=== PATIENT | female | born 1955 | race Caucasian/White ===

== ENCOUNTER 2021-04-25 10:38 | Emergency (ER) | payer OTHER, SELFPAY ==
--- NOTE | ~2021-04-25 | CT_ITS ---
EXAMINATION: CT facial & cervical spine wo DATE: 04/25/2021 11:52 INDICATION: Head injury, left facial and neck swelling TECHNIQUE: Computed tomography (CT) of the maxillofacial region and cervical spine was performed with out intravenous contrast. The dose-length product (DLP) was 475.69 mGy-cm. Automated exposure control and iterative reconstruction technique were employed. COMPARISON: None FINDINGS: MAXILLOFACIAL CT: No facial bone fracture is identified. There is mild mucosal thickening of the paranasal sinuses. The re are surgical changes of the maxillary sinuses. CERVICAL SPINE CT: There is no fracture. There is 1 mm of anterolisthesis of C2 on C3, C3 on C4, and C4 on C5. The verte bral body heights are maintained. There is moderate to severe loss of intervertebral disc space heigh t at C5-6 and C6-7. There is moderate to severe multilevel facet and uncovertebral joint osteoarthrit is. The odontoid is intact. The prevertebral soft tissues are normal. IMPRESSION: 1. No facial fracture identified. 2. Severe cervical spondylosis without acute findings. Reviewed, dictated and finalized at location A. OLEUM LABORATORY TECHNICIAN
--- NOTE | ~2021-04-25 | CT_ITS ---
EXAMINATION: CT brain wo con INDICATION: Head injury COMPARISON: None TECHNIQUE: Standard unenhanced head CT. The dose-length product (DLP) was 605.33 mGy-cm. The mA was a djusted according to patient size. Iterative reconstruction technique was employed. FINDINGS: There is no acute intraparenchymal hemorrhage. No evidence of mass lesion. No evidence of a cute infarction. There is mild periventricular and subcortical hypodensity probably related to small vessel ischemic disease. There is mild prominence of the sulci and ventricles related to cerebral atr ophy. Intracranial calcified cerebral atherosclerosis is noted. There are no extra-axial collections. There is no mass effect or midline shift. The orbits and soft tissues are unremarkable. There is mil d mucosal thickening of the paranasal sinuses. Surgical changes are noted in the maxillary sinuses. IMPRESSION: 1. No acute intracranial abnormality. 2. Age related findings. Reviewed, dictated and finalized at location A. ULER
[2021-04-25 10:42] VITALS: BP 160/95; PULSE 83; RESP 16; TEMP 36.2; O2SAT 97
--- NOTE | 2021-04-25 11:46 | ED.FALL ---
HPI - Fall General Chief Complaint: Fall Stated Complaint: fall Time Seen by Provider: 04/25/21 11:19 Source: patient Mode of arrival: ambulatory Limitations: no limitations History of Present Illness HPI Narrative: This is a 66-year-old female that presents to the emergency department after a fall 2 days ago. Reports she tripped in her kitchen and fell and hit her head and neck on the cabinets. Reports since she has had headache and neck pain. She is not on any blood thinners. Denies loss of consciousness, vision changes, vomiting, numbness, or weakness. Related Data Allergies Allergy/AdvReac Type Severity Reaction Status Date / Time No Known Allergies Allergy Verified 04/25/21 12:02 Review of Systems Review of Systems: CONSTITUTIONAL: Denies fever EYES: Denies visual changes GASTROINTESTINAL: Denies vomiting MUSCULOSKELETAL: Reports joint pain, and myalgia. NEUROLOGIC: Reports headache. Denies numbness, or weakness. All systems reviewed & are unremarkable except as noted in HPI and below PMFSH Past Medical History Medical History (Updated 04/25/21 @ 12:40 by Arlette Montemayor PA-C) History of hypertension History of psoriatic arthritis Social History Social History (Updated 04/25/21 @ 11:48 by Arlette Montemayor PA-C) Smoking status: Never smoker Exam Narrative: GENERAL: Well-appearing, well-nourished, and in no acute distress. HEAD: Normocephalic. Bruising noted to the left ear and the left side of the neck EYES: PERRLA and EOMI. ENT: Nares clear, no rhinorrhea or epistaxis. Mucous membranes moist. Oropharynx without tonsillar hypertrophy exudate or other lesions. Bilateral TMs pearly elaine non-bulging NECK: Supple. No adenopathy or masses. Tender to palpation of midline cervical spine CHEST: Clear to auscultation. No respiratory distress. No wheezes rales or rhonchi HEART: Regular rate and rhythm. No murmur heard. Normal peripheral pulses. BACK: Nontender to palpation of midline thoracic or lumbar spine EXTREMITIES: Normal range of motion. No edema. SKIN: Warm, dry, no rash. NEURO: No focal deficits. Alert and oriented x3. Cranial nerves II through XII grossly intact PSYCH: Normal mood and affect Course Vital Signs Vital signs: Vital Signs Temperature 97.2 F L 04/25/21 10:42 Pulse Rate 83 04/25/21 10:42 Respiratory Rate 16 04/25/21 10:42 Blood Pressure 160/95 H 04/25/21 10:42 Pulse Oximetry 97 04/25/21 10:42 Temperature 97.2 F L 04/25/21 10:42 Pulse Rate 83 04/25/21 10:42 Respiratory Rate 16 04/25/21 10:42 Blood Pressure 160/95 H 04/25/21 10:42 Pulse Oximetry 97 04/25/21 10:42 MDM - Fall MDM Narrative Medical decision making narrative: Patient presents to the emergency department after head injury 2 days ago. Reporting headache, neck pain, and facial injury. Patient is neurologically intact. Her vitals are stable. CT scan of the brain is without acute findings. CT scan cervical spine and facial bones also without acute findings. Patient was updated on case findings. She was instructed on care of concussion. She is to follow-up with her primary care doctor. She was given warnings to return to the ER Imaging Data Radiologist's impression: ITS Impressions Head CT 04/25/21 11:52 IMPRESSION: 1. No acute intracranial abnormality. 2. Age related findings. Head/Cervical Spine/Facial Bones CT 04/25/21 11:57 IMPRESSION: 1. No facial fracture identified. 2. Severe cervical spondylosis without acute findings. Critical Care Time Critical Care Time Critical Care Time: No Discharge Plan Discharge Clinical Impression: Head injury Qualifiers: Encounter type: initial encounter Qualified Code(s): S09.90XA - Unspecified injury of head, initial encounter Patient Disposition: Home, Self-Care Condition: Stable Instructions: Head Injury (ED) Additional Instructions: Return to the emergency department if you experienc
[2021-04-25] MEDS: ACETAMINOPHEN 500 MG TABLET 1000 MG PO (12:00)
== END 2021-04-25 12:45 | disposition home or self-care (01) ==
PROVIDERS: Emergency Provider Emergency Medicine
DX: S09.90XA Unspecified injury of head, initial encounter (principal); L40.50 Arthropathic psoriasis, unspecified; I10 Essential (primary) hypertension; M47.812 Spondylosis without myelopathy or radiculopathy, cervical region; W01.198A Fall on same level from slipping, tripping and stumbling with subsequent striking against other object, initial encounter
CPT/HCPCS: 70450; 70486; 72125; 99284; A9270

== ENCOUNTER 2021-11-13 09:01 | Emergency (ER) | payer OTHER, SELFPAY ==
[2021-11-13] VITALS (14 sets, daily range): BP systolic 137–180; BP diastolic 76–99; PULSE 89–105; RESP 15–28; TEMP 36.6; O2SAT 95–100
--- NOTE | ~2021-11-13 | XR_ITS ---
EXAMINATION: XR chest 2V 11/13/2021 09:50 INDICATION: Hypertension. Generalized weakness. PROCEDURE: 2 view chest COMPARISON: No prior studies for comparison. FINDINGS: The lungs are clear. The cardiomediastinal silhouette is within normal limits. There are no pleural effusions. There is no pneumothorax suspected. IMPRESSION: 1: NO ACUTE CARDIOPULMONARY DISEASE. Reviewed, dictated and finalized at location A.
--- NOTE | 2021-11-13 09:12 | ECG_ITS ---
Measurements Intervals [place] Rate: 85 P: 42 [place]: 169 QRS: -17 QRSD: 92 T: 10 QT: 361 QTc: 432 Interpretive Statements SINUS RHYTHM LOW QRS VOLTAGE IN PRECORDIAL LEADS [QRS DEFLECTION < 1.0 mV IN CHEST LEADS] POSSIBLE RIGHT VENTRICULAR CONDUCTION DELAY [RSR (QR) IN V1/V2] BORDERLINE ECG NO PREVIOUS ECG AVAILABLE FOR COMPARISON Electronically Signed On 11-13-2021 14:39:54 CDT by Willis Brown M.D.
--- NOTE | 2021-11-13 09:14 | ED.RECABL ---
HPI - Recheck/Abnormal Lab/Rx General Chief Complaint: Recheck/Abnormal Lab/Rx Stated Complaint: High BP, Feeling Sick All Week Time Seen by Provider: 11/13/21 09:12 Source: patient Mode of arrival: ambulatory Limitations: no limitations History of Present Illness HPI narrative: This is a 66 year old female that presents to the ER for elevated blood pressure. Reports she has been feeling funny all week. Reports a discomfort in her chest, that feels like nausea. This is worse in the morning and gets better throughout the day. She took her blood pressure today and it was elevated to the 200s/100s which prompted her to be seen today. She has been taking her blood pressure medications daily. She took them this morning. Reports she does follow with a wood model builder and had a stress test last year that was without concerning findings. Denies shortness of breath, abdominal pain, or lower extremity edema. Related Data Home Medications Medication Instructions Recorded Confirmed azelastine 137 mcg (0.1 %) nasal spray intranasal 11/13/21 spray aerosol duloxetine 30 mg capsule,delayed cap PO 11/13/21 release fluticasone propionate 50 ea intranasal 11/13/21 mcg/actuation nasal spray,suspension hydrochlorothiazide 25 mg tablet tablet 11/13/21 hydroxychloroquine 200 mg tablet tablet PO 11/13/21 leflunomide 20 mg tablet tablet 11/13/21 lisdexamfetamine 40 mg capsule cap 11/13/21 (Vyvanse) lisinopril 40 mg tablet tablet 11/13/21 Allergies Allergy/AdvReac Type Severity Reaction Status Date / Time No Known Allergies Allergy Verified 11/13/21 09:09 Review of Systems Review of Systems: CONSTITUTIONAL: Denies fever CARDIOVASCULAR: Reports chest pain. Denies edema. RESPIRATORY: Denies dyspnea. GASTROINTESTINAL: Reports nausea. Denies abdominal pain, vomiting GENITOURINARY: Denies dysuria All systems reviewed & are unremarkable except as noted in HPI and below PMFSH Past Medical History Medical History (Updated 11/13/21 @ 13:34 by Arlette Montemayor PA-C) History of hypertension History of psoriatic arthritis Social History Social History (Updated 04/25/21 @ 11:48 by Arlette Montemayor PA-C) Smoking status: Never smoker Exam Narrative: GENERAL: Well-appearing, well-nourished, and in no acute distress. HEAD: Normocephalic, atraumatic. EYES: PERRLA and EOMI. ENT: Nares clear, no rhinorrhea or epistaxis. Mucous membranes moist. Oropharynx without tonsillar hypertrophy exudate or other lesions. Bilateral TMs pearly elaine non-bulging NECK: Supple. No adenopathy or masses. CHEST: Clear to auscultation. No respiratory distress. No wheezes rales or rhonchi HEART: Regular rate and rhythm. No murmur heard. Normal peripheral pulses. ABDOMEN: Soft, nontender, nondistended, normal active bowel sounds. EXTREMITIES: Normal range of motion. No edema. Strength equal in bilateral upper and lower extremities (5/5) SKIN: Warm, dry, no rash. NEURO: No focal deficits. Alert and oriented x3. Cranial nerves II through XII grossly intact PSYCH: Anxious, tearful Course Vital Signs Vital signs: Vital Signs Temperature 97.9 F 11/13/21 09:06 Pulse Rate 89 11/13/21 09:06 Respiratory Rate 28 H 11/13/21 09:06 Blood Pressure 180/80 H 11/13/21 09:06 Pulse Oximetry 100 11/13/21 09:06 Oxygen Delivery Room Air 11/13/21 09:06 Temperature 97.9 F 11/13/21 09:06 Pulse Rate 98 11/13/21 13:43 Respiratory Rate 18 11/13/21 13:43 Blood Pressure 148/92 H 11/13/21 13:43 Pulse Oximetry 100 11/13/21 13:43 Oxygen Delivery Room Air 11/13/21 09:06 MDM - Recheck/Abnormal Lab/Rx MDM Narrative Medical decision making narrative: Patient presents to the emergency department for elevated blood pressure. Reports she had been feeling funny all week. Does not necessarily have any localizing complaints, other than a vague feeling in her chest that she reports was worse in the morning and would improve throug
[2021-11-13 09:36] LABS: Basophils Percent Auto 0.8 % (0.2-1.2); Eosinophils Absolute Auto 0.1 K/mm3 (0-0.3); Eosinophils Percent Auto 3.6 % (0-4.4); Hemoglobin 13.5 g/dL (12.0-15.0); Immature Granulocyte Absolute 0.01 K/mm3 (0.00-0.031); Immature Granulocyte Percent A 0.3 % (0-0.5); Lymphocytes Absolute Auto 1.26 K/mm3 (0.9-3.2); Lymphocytes Percent Auto 32.3 % (18.3-44.2); Mean Corpuscular HGB Conc 32.9 g/dl (32-36); Mean Corpuscular Hemoglobin 28.7 pg (26-34); Mean Platelet Volume 9.1 fl (7.4-10.4); Monocytes Absolute Auto 0.4 K/mm3 (0.1-0.6); Monocytes Percent Auto 9.5 % (2.6-8.5); Neutrophils Absolute Auto 2.1 K/mm3 (1.3-6.7); Neutrophils Percent Auto 53.5 % (45.5-73.1); Platelet Count Result 199 k/mm3 (150-375); Red Blood Count 4.71 M/mm3 (4.2-5.4); Red Cell Distribution Width 11.9 % (11.5-14.5); White Blood Count 3.9 K/mm3 (4.5-10.0)
[2021-11-13 09:47] LABS: Add Urine Microscopic? NO; Appearance Urine Clear (Clear); Bilirubin Urine Negative (Negative); Blood Urine Negative (Negative); Color Urine Yellow (Yellow); Glucose Urine UA Negative (Negative); Ketones Urine Negative (Negative); Leukocyte Esterase Ur Negative LEU/UL (Negative); Nitrate Urine Negative (Negative); Protein Urine Negative (Negative); Urobilinogen Urine 0.2 mg/dL (<2.0); pH Urine 6.5 (5.0-9.0)
[2021-11-13 09:50] LABS: Lipase 166 U/L (23-300)
[2021-11-13 09:53] LABS: Alanine Aminotransferase 24 U/L (6-35); Albumin Level 4.3 g/dL (3.5-5.1); Alkaline Phosphatase 73 U/L (38-126); Anion Gap 5 mmol/L (8-16); Aspartate Amino Transferase 27 U/L (14-36); Bilirubin,Total 0.4 mg/dL (0.2-1.3); Blood Urea Nitrogen 13 mg/dL (7-17); Calcium 9.3 mg/dL (8.4-10.2); Carbon Dioxide 30 mmol/L (22-30); Chloride 100 mmol/L (98-107); Estimated CRCL calculation 86 ml/min; Estimated Glomerular Filt Rate > 60; Glucose 100 mg/dL (65-110); Potassium 4.1 mmol/L (3.4-5.0); Sodium 135 mmol/L (137-145)
[2021-11-13 09:56] LABS: INR 0.9
[2021-11-13 09:57] LABS: Partial Thromboplastin Time 24.7 SECONDS (22.3-36.8)
[2021-11-13 10:20] LABS: NT Pro B Type Natriuretic Pept 54 pg/mL (5-100); Troponin I < 0.012 ng/mL (0.000-0.034)
[2021-11-13] MEDS: ONDANSETRON INJ 4 MG/2 ML VIAL IV PUSH (10:23)
[2021-11-13] MEDS: PANTOPRAZOLE SODIUM IV 40 MG VIAL IV PUSH (10:23)
[2021-11-13] MEDS: ASPIRIN 81 MG CHEWABLE TABLET 324 MG PO (10:23)
[2021-11-13 11:07] LABS: Influenza A QL RT-PCR Negative (Negative); Influenza B QL RT-PCR Negative (Negative); SARS-CoV-2 RNA PCR Negative
[2021-11-13 13:11] LABS: Troponin I < 0.012 ng/mL (0.000-0.034)
[2021-11-13 17:39] LABS: Monoscreen Negative (Negative); Negative Monotest Control Negative (Negative); Positive Monotest Control Positive (Positive)
== END 2021-11-13 13:44 | disposition home or self-care (01) ==
PROVIDERS: Physician Assistant; Emergency Provider Emergency Medicine
DX: I10 Essential (primary) hypertension (principal); Z20.822 Contact with and (suspected) exposure to COVID-19; L40.50 Arthropathic psoriasis, unspecified; R94.31 Abnormal electrocardiogram [ECG] [EKG]
CPT/HCPCS: 36415; 71046; 80053; 81003; 83690; 83880; 84484; 85025; 85610; 85730; 86308; 87502; 93005; 96374; 96375; 99284; A9270; C9113; C9803; J2405; U0003; U0005

== ENCOUNTER 2023-05-03 17:28 | Emergency (ER) | payer OTHER, SELFPAY ==
[2023-05-03] VITALS (12 sets, daily range): BP systolic 96–129; BP diastolic 57–61; PULSE 68–80; RESP 15–28; TEMP 36.4; O2SAT 95–98
--- NOTE | ~2023-05-03 | XR_ITS ---
EXAMINATION: XR chest 2V Exam Date/Time: 05/03/2023 17:50 DATA CENTER TECHNICIAN HISTORY: chest pain Comparison: 11/13/2021. RESULT: Lines, tubes, and devices: Cholecystectomy clips. Lungs and pleura: Senescent change, mild bibasilar atelectasis/scar. Cardiomediastinal silhouette: Stable. Other: No acute osseous or upper abdominal finding. IMPRESSION: No acute cardiopulmonary process. Reviewed, dictated and finalized at location K. CENTER TECHNICIAN
--- NOTE | 2023-05-03 17:30 | ECG_ITS ---
Measurements Intervals [place] Rate: 77 P: 18 [place]: 185 QRS: -12 QRSD: 97 T: -1 QT: 393 QTc: 447 Interpretive Statements SINUS RHYTHM LOW QRS VOLTAGE IN PRECORDIAL LEADS [QRS DEFLECTION < 1.0 mV IN CHEST LEADS] INCOMPLETE RIGHT BUNDLE BRANCH BLOCK MODERATE VOLTAGE CRITERIA FOR LVH, CONSIDER NORMAL VARIANT COMPARED TO ECG 11/13/2021 09:13:04 NO SIGNIFICANT CHANGE Electronically Signed On 05-03-2023 20:23:59 TECHNICAL ADJUSTER by Lucrecia Alcantar M.D.
[2023-05-03 18:10] LABS: Basophils Percent Auto 0.6 % (0.2-1.2); Eosinophils Absolute Auto 0.1 K/mm3 (0-0.3); Hematocrit 31.3 % (37.0-47.0); Hemoglobin 10.4 g/dL (12.0-15.0); Immature Granulocyte Absolute 0.01 K/mm3 (0.00-0.031); Immature Granulocyte Percent A 0.3 % (0-0.5); Lymphocytes Absolute Auto 0.22 K/mm3 (0.9-3.2); Lymphocytes Percent Auto 6.6 % (18.3-44.2); Mean Corpuscular HGB Conc 33.2 g/dl (32-36); Mean Corpuscular Hemoglobin 29.5 pg (26-34); Mean Corpuscular Volume 88.7 fl (80-100); Mean Platelet Volume 9.6 fl (7.4-10.4); Monocytes Absolute Auto 0.3 K/mm3 (0.1-0.6); Monocytes Percent Auto 8.1 % (2.6-8.5); Neutrophils Absolute Auto 2.7 K/mm3 (1.3-6.7); Neutrophils Percent Auto 81.4 % (45.5-73.1); Platelet Count Result 144 k/mm3 (150-375); Red Blood Count 3.53 M/mm3 (4.2-5.4); Red Cell Distribution Width 11.9 % (11.5-14.5); White Blood Count 3.3 K/mm3 (4.5-10.0)
[2023-05-03 18:12] LABS: Alanine Aminotransferase 21 U/L (6-35); Albumin Level 3.8 g/dL (3.5-5.1); Alkaline Phosphatase 76 U/L (38-126); Anion Gap 7 mmol/L (8-16); Aspartate Amino Transferase 32 U/L (14-36); Bilirubin,Total 0.4 mg/dL (0.2-1.3); Blood Urea Nitrogen 10 mg/dL (7-17); Calcium 9.2 mg/dL (8.4-10.2); Carbon Dioxide 27 mmol/L (22-30); Chloride 95 mmol/L (98-107); Estimated CRCL calculation 90 ml/min; Estimated Glomerular Filt Rate > 60; Glucose 111 mg/dL (65-110); Lipase 72 U/L (23-300); Potassium 3.4 mmol/L (3.4-5.0); Sodium 129 mmol/L (137-145)
--- NOTE | 2023-05-03 18:14 | ED.CHESTPAIN ---
HPI - Chest Pain General Chief Complaint: Chest Pain Stated Complaint: CP Time Seen by Provider: 05/03/23 18:12 Source: patient and family (daughter in law) Mode of arrival: EMS Limitations: no limitations History of Present Illness HPI narrative: This is a 68 yo female who presents with chest pain that started at rest while driving approx 1 hour prior to arrival. It radiated to her abdomen and was associated with nausea. No shortness of breath. She received ASA and 2 NTG by EMS which helped. No LE edema. She describes it as a pressure, initially 8/10 and now 1 out of 10 in severity. It lasted 15 minutes but states it made her nearly pass out. Afterwards she felt exhausted. She is currently being treated for a UTI and is on her second round of antibiotics which she states has left her tired as well. Her throat is also sore. Related Data Home Medications Medication Instructions Recorded Confirmed azelastine 137 mcg (0.1 %) nasal spray intranasal 11/13/21 spray aerosol duloxetine 30 mg capsule,delayed cap PO 11/13/21 release fluticasone propionate 50 ea intranasal 11/13/21 mcg/actuation nasal spray,suspension hydrochlorothiazide 25 mg tablet tablet 11/13/21 hydroxychloroquine 200 mg tablet tablet PO 11/13/21 leflunomide 20 mg tablet tablet 11/13/21 lisdexamfetamine 40 mg capsule cap 11/13/21 (Vyvanse) lisinopril 40 mg tablet tablet 11/13/21 Allergies Allergy/AdvReac Type Severity Reaction Status Date / Time No Known Allergies Allergy Verified 05/03/23 17:42 [facility] Past Medical History Medical History (Updated 05/05/23 @ 19:24 by Lisa Geiger MD) History of hypertension History of psoriatic arthritis UTI (urinary tract infection) March 2023 Social History Social History (Updated 04/25/21 @ 11:48 by Arlette Montemayor PA-C) Smoking status: Never smoker Exam Narrative: GENERAL: Well-appearing, well-nourished, and in no acute distress. HEAD: Normocephalic, atraumatic. EYES: Non injected, non icteric ENT: Nares clear, no rhinorrhea or epistaxis. Posterior oropharynx without marked erythema. [place] midline. No tonsilar swelling or exudate. NECK: Supple. CHEST: Clear to auscultation. No respiratory distress. HEART: Regular rate and rhythm. . ABDOMEN: Soft, nondistended. BACK : NO CVA tenderness EXTREMITIES: Normal range of motion. No lower extremity edema. SKIN: Warm, dry, no rash. NEURO: No focal deficits. Alert and oriented x3. PSYCH: Normal mood and affect. Course Vital Signs Vital signs: Vital Signs Pulse Rate 75 05/03/23 17:37 Respiratory Rate 23 H 05/03/23 17:37 Temperature 97.5 F L 05/03/23 17:38 Pulse Rate 68 05/03/23 22:03 Respiratory Rate 17 05/03/23 22:03 Blood Pressure 122/60 05/03/23 22:03 Pulse Oximetry 98 05/03/23 22:03 Oxygen Delivery Room Air 05/03/23 17:38 MDM - Chest Pain MDM Narrative Medical decision making narrative: This is a 68 yo female who experienced 15 minutes of chest pain associated with nausea and radiating to her abdomen approximately 1 hour prior to arrival. She is currently undergoing treatment for a UTI but is afebrile, non toxic, and without CVA tenderness thus don't suspect pyelonephritis. Patient notes a sore throat but Centor score 0 (-1 or age and +1 for absent cough) thus will defer further testing. EKG without evidence of ischemia and troponin WNL x2. Mild electrolyte abnormalities but with normal renal function and otherwise reassuring physical exam and work-up. Patient has a low HEART score. Discharged and recommend outpatient follow up. Given ED return precautions. Differential Diagnosis Differential diagnosis: Likely pneumothorax, unstable angina pectoris, atypical chest pain, st elevation myocardial infarction, chest pain, biliary colic and other (PNA) Lab Data Attestation: I reviewed the patient's lab results. Lab results narrative: Leukopenia, anemia, thrombocytopenia Hypo
[2023-05-03 18:21] LABS: Partial Thromboplastin Time 25.9 SECONDS (22.3-36.8); Prothrombin Time 13.6 Seconds (11.1-14.7)
[2023-05-03 18:23] LABS: Troponin I < 0.012 ng/mL (0.000-0.034)
[2023-05-03] MEDS: SODIUM CHLORIDE 0.9% IV 1,000 ML 999 ML IV CONT (20:03)
[2023-05-03] MEDS: ACETAMINOPHEN 500 MG TABLET 1000 MG PO (21:11)
[2023-05-03 21:14] LABS: Troponin I < 0.012 ng/mL (0.000-0.034)
== END 2023-05-03 22:05 | disposition home or self-care (01) ==
PROVIDERS: Emergency Medicine; Emergency Provider Student in an Organized Health Care Education/Training Program
DX: R07.9 Chest pain, unspecified (principal); E87.1 Hypo-osmolality and hyponatremia; I10 Essential (primary) hypertension
CPT/HCPCS: 36415; 71046; 80053; 83690; 84484; 85025; 85610; 85730; 93005; 96360; 99284; A9270; J7030